=== PATIENT | female | born 1940 | race Caucasian/White ===

== ENCOUNTER 2018-02-11 12:28 | Emergency (ER) | payer MEDICARE, OTHER ==
[~2018-02-11] VITALS: Ht 154.9 cm; Wt 64.4 kg
[~2018-02-11 12:28] MED LIST: ALBU.083IS IH; ALBU90OI6 INH; ASCO500 PO; AZIT500 PO; Ativan0.5 MG PO; CALCA400CH PO; CALCIT950 PO; CARV25 PO; CEPH500 PO; DIGO.125 PO; DIGO.25 PO; DOCU100 PO; ENZYME DIGEST PO; ERGO400 PO; FAMVIR PO; FISH1000 PO; FLUSAL2505 IH; FLUT.05NI; FLUT44OIA IH; FURO20 PO; FURO40 PO; HYDCHL25 PO; IRBE150 PO; IRBHYD150 PO; Jantoven5 MG; LEVFLO500 PO; LEVSOD100 PO; LEVSOD112 PO; LEVSOD125 PO; LEVSOD88 PO; MELA3 PO; MELATIN3 MG PO; METPRE4DP PO; MONT10T PO; MULVITMINF PO; NEBI5; NEBI5 PO; OXYC10ER PO; POTA20PAC PO; POTCHL10ER PO; Percocet 5-3251 EACH PO; SULTRIDS PO; TOCO400 PO; TRAZ100 PO; TRAZ50 PO; VALS80 PO; VITAMIN D35000 UNI1 PO; VITB100 PO; Ventolin Soln3 ML INH; WARF5 PO; WARF7.5 PO; ZOLP5 PO; [UNRECOGNIZED DRUG - REMARK]
[2018-02-11] MEDS ORDERED: PRED5 PO (12:39)
[2018-02-11 13:12] LABS: BASOPHILS ABSOLUTE AUTO 0.03 K/mm3 (0.00-0.23); BASOPHILS PERCENT AUTO 0 % (0-2); EOSINOPHILS PERCENT AUTO 0 % (0-6); Hematocrit 38.7 % (33.0-51.0); Hemoglobin 12.5 g/dL (11.5-16.0); IMMATURE GRAN ABSOLUTE AUTO 0.05 K/mm3 (0.00-0.10); IMMATURE GRAN PERCENT AUTO 1 % (0-1); LYMPHOCYTES ABSOLUTE AUTO 0.46 K/mm3 (0.84-5.20); LYMPHOCYTES PERCENT AUTO 4 % (21-46); MONOCYTES ABSOLUTE AUTO 0.52 K/mm3 (0.16-1.47); MONOCYTES PERCENT AUTO 5 % (4-13); Mean Corpuscular HGB 29.3 pg (26.0-34.0); Mean Corpuscular HGB Conc 32.3 g/dL (31.5-36.5); Mean Corpuscular Volume 91 fL (80-100); Mean Platelet Volume 11.3 fL (9.1-12.4); NEUTROPHILS ABSOLUTE AUTO 9.57 K/mm3 (1.96-9.15); NEUTROPHILS PERCENT AUTO 90 % (41-73); NRBC ABSOLUTE 0.02 K/mm3 (0.00-0.02); NRBC Auto 0.2 /100 WBC (0.0-0.2); Platelet Count 187 K/mm3 (150-400); RDW Coefficient Variation 17.2 % (11.7-14.2); RDW Standard Deviation 57.4 fL (35.1-46.3); Red Blood Cell Count 4.27 M/mm3 (3.80-5.20); White Blood Cell Count 10.63 K/mm3 (4.00-11.30)
[2018-02-11 13:23] LABS: International Normalized Ratio 3.1; Prothrombin Time Results 33.4 Sec (9.7-11.5)
[2018-02-11 13:26] LABS: Alanine Aminotransfer (ALT/SGP 133 U/L (12-78); Albumin, Blood 4.2 g/dL (3.4-5.0); Albumin/Globulin Ratio 1.1 (0.8-1.8); Alk Phos 82 U/L (50-136); Anion Gap 7 mmol/L (6-16); Aspartate Aminotrans (AST/SGOT 109 U/L (12-37); Bilirubin, Total 1.2 mg/dL (0.1-1.0); Blood Urea Nitrogen 28 mg/dL (8-24); Bun/Creatinine Ratio 32.3 (12.0-20.0); CO2, Blood 30 mmol/L (21-32); Calcium, Blood 9.1 mg/dL (8.5-10.1); Chloride, Blood 98 mmol/L (98-108); Creatinine, Blood 0.87 mg/dL (0.40-1.00); Globulin, Blood 3.8 g/dL (2.2-4.0); Glomerular Filtration Rate >60 (60-); Glucose, Blood 132 mg/dL (70-99); Potassium, Blood 4.1 mmol/L (3.5-5.5); Sodium, Blood 135 mmol/L (136-145); Troponin I 0.017 ng/mL (0.000-0.040)
[2018-02-11] MEDS ORDERED: PRED20 PO (15:58)
[2018-07-10] MEDS ORDERED: Multivitamin1 EAC1 PO (12:23)
[2018-07-10] MEDS ORDERED: LEVSOD88 PO (12:23)
== END 2018-02-11 16:26 | disposition home or self-care (01) ==
LOC: ER 12:28
PROVIDERS: Physician Assistant
DX: I50.9 Heart failure, unspecified (principal); J45.909 Unspecified asthma, uncomplicated; Z88.1 Allergy status to other antibiotic agents; Z88.5 Allergy status to narcotic agent; Z88.8 Allergy status to other drugs, medicaments and biological substances; Z79.899 Other long term (current) drug therapy; Z79.01 Long term (current) use of anticoagulants; Z79.52 Long term (current) use of systemic steroids; I48.91 Unspecified atrial fibrillation
CPT/HCPCS: 36415; 71046; 80053; 83880; 84484; 85025; 85610; 93005; 93010; 94640; 96374; 96375; 99283; J1940; J2920

== ENCOUNTER 2018-07-16 12:38 | Day surgery (SDC) | payer MEDICARE, OTHER ==
[~2018-07-16] VITALS: Ht 154.9 cm; Wt 66.7 kg
[~2018-07-16 12:38] MED LIST changes: +Multivitamin1 EAC1 PO; +PRED20 PO; +PRED5 PO
== END 2018-07-16 15:12 | disposition home or self-care (01) ==
LOC: ORSCSDS 12:38
PROVIDERS: Internal Medicine Gastroenterology
PROC: 0DBN8ZX Excision of Sigmoid Colon, Via Natural or Artificial Opening Endoscopic, Diagnostic (ICD-10-PCS; principal; 2018-07-16 14:00)
PROC: 0DBH8ZX Excision of Cecum, Via Natural or Artificial Opening Endoscopic, Diagnostic (ICD-10-PCS; principal; 2018-07-16 14:00)
PROC: 0DBP8ZX Excision of Rectum, Via Natural or Artificial Opening Endoscopic, Diagnostic (ICD-10-PCS; principal; 2018-07-16 14:00)
DX: Z12.11 Encounter for screening for malignant neoplasm of colon (principal); Z86.010 Personal history of colon polyps; D12.0 Benign neoplasm of cecum; K63.5 Polyp of colon; K62.1 Rectal polyp; K63.89 Other specified diseases of intestine; K57.30 Diverticulosis of large intestine without perforation or abscess without bleeding; K64.8 Other hemorrhoids; K64.4 Residual hemorrhoidal skin tags; I10 Essential (primary) hypertension; I48.0 Paroxysmal atrial fibrillation; Z95.0 Presence of cardiac pacemaker; Z79.899 Other long term (current) drug therapy; Z79.01 Long term (current) use of anticoagulants
CPT/HCPCS: J2370; J2405; J7120

== ENCOUNTER 2020-09-22 10:04 | Emergency (ER) | payer MEDICARE, OTHER ==
[~2020-09-22] VITALS: Ht 154.9 cm; Wt 95.2 kg
[2020-09-22] MEDS ORDERED: DICLOFENAC SOD100 GM TOP (13:02)
== END 2020-09-22 13:00 | disposition home or self-care (01) ==
LOC: ER 10:04
DX: M79.672 Pain in left foot (principal); Z79.899 Other long term (current) drug therapy
CPT/HCPCS: 73630; 99283-25

== ENCOUNTER 2020-11-11 14:08 | Emergency (ER) | payer MEDICARE, OTHER ==
[~2020-11-11] VITALS: Ht 157.5 cm; Wt 54.4 kg
[~2020-11-11 14:08] MED LIST changes: +DICLOFENAC SOD100 GM TOP
[2020-11-11 14:46] LABS: Source, Urine Catheter
[2020-11-11 14:49] LABS: Appearance, Urine Clear (Clear); Bilirubin, Urine Neg (Neg); Blood, Urine 1+ (Neg); Color, Urine Yellow (P-Yellow); Glucose Qualitative, Urine Neg (Neg); Ketones, Urine Neg (Neg); Leukocyte Esterase, Urine 1+ (Neg); Nitrite, Urine Neg (Neg); Protein, Urine Neg (Neg); Specific Gravity, Urine 1.015 (1.003-1.022); Urobilinogen, Urine NORM (Normal)
[2020-11-11 14:58] LABS: Bacteria Rare /hpf; Red Blood Cells, Urine 0-2 /hpf (0-2); Squamous Epithelial Cells Not Seen /hpf (Few); White Blood Cells, Urine 0-2 /hpf (0-5)
[2020-11-11] MEDS ORDERED: TORSE20 PO (15:20)
[2020-11-11] MEDS ORDERED: POTA10T PO (15:20)
[2020-11-11] MEDS ORDERED: SPIR25 PO (15:20)
[2020-11-11] MEDS ORDERED: XYZAL5 MG PO (15:21)
[2020-11-11] MEDS ORDERED: SYMBICORT 80-10.2 GM INH (15:22)
[2020-11-11 15:37] LABS: BASOPHILS ABSOLUTE AUTO 0.04 K/mm3 (0.00-0.23); BASOPHILS PERCENT AUTO 1 % (0-2); EOSINOPHILS ABSOLUTE AUTO 0.01 K/mm3 (0.00-0.68); EOSINOPHILS PERCENT AUTO 0 % (0-6); Hematocrit 38.3 % (33.0-51.0); IMMATURE GRAN ABSOLUTE AUTO 0.05 K/mm3 (0.00-0.10); IMMATURE GRAN PERCENT AUTO 1 % (0-1); LYMPHOCYTES ABSOLUTE AUTO 1.13 K/mm3 (0.84-5.20); LYMPHOCYTES PERCENT AUTO 13 % (21-46); MONOCYTES ABSOLUTE AUTO 0.47 K/mm3 (0.16-1.47); MONOCYTES PERCENT AUTO 5 % (4-13); Mean Corpuscular HGB 28.9 pg (26.0-34.0); Mean Corpuscular HGB Conc 31.3 g/dL (31.5-36.5); Mean Corpuscular Volume 92 fL (80-100); NEUTROPHILS ABSOLUTE AUTO 7.08 K/mm3 (1.96-9.15); NEUTROPHILS PERCENT AUTO 81 % (41-73); NRBC ABSOLUTE 0.02 K/mm3 (0.00-0.02); NRBC Auto 0.2 /100 WBC (0.0-0.2); RDW Coefficient Variation 16.2 % (11.7-14.2); RDW Standard Deviation 54.9 fL (35.1-46.3); Red Blood Cell Count 4.15 M/mm3 (3.80-5.20); White Blood Cell Count 8.78 K/mm3 (4.00-11.30)
[2020-11-11 16:04] LABS: Alanine Aminotransfer (ALT/SGP 52 U/L (12-78); Albumin, Blood 3.8 g/dL (3.4-5.0); Albumin/Globulin Ratio 0.9 (0.8-1.8); Alk Phos 115 U/L (50-136); Anion Gap 7 mmol/L (6-16); Aspartate Aminotrans (AST/SGOT 51 U/L (12-37); Bilirubin, Total 1.1 mg/dL (0.1-1.0); Blood Urea Nitrogen 29 mg/dL (8-24); Bun/Creatinine Ratio 34.2 (12.0-20.0); CO2, Blood 25 mmol/L (21-32); Calcium, Blood 9.8 mg/dL (8.5-10.1); Chloride, Blood 105 mmol/L (98-108); Creatinine, Blood 0.85 mg/dL (0.40-1.00); Globulin, Blood 4.4 g/dL (2.2-4.0); Glomerular Filtration Rate >60 (60-); Glucose, Blood 104 mg/dL (70-99); Potassium, Blood 4.6 mmol/L (3.5-5.5); Sodium, Blood 137 mmol/L (136-145); Total Protein, Blood 8.2 g/dL (6.4-8.2)
[2020-11-11 16:05] LABS: Mean Platelet Volume 12.6 fL (9.1-12.4); Platelet Count 145 K/mm3 (150-400)
[2020-11-11] MEDS ORDERED: LACTULOSE20 GM/30 M PO (17:32)
[2020-11-11] MEDS ORDERED: Colace100 MG PO (17:32)
== END 2020-11-11 18:00 | disposition home or self-care (01) ==
LOC: ER 14:08
PROVIDERS: Physician Assistant; Student in an Organized Health Care Education/Training Program
DX: K59.00 Constipation, unspecified (principal); I50.9 Heart failure, unspecified; I48.91 Unspecified atrial fibrillation; J45.909 Unspecified asthma, uncomplicated; Z79.01 Long term (current) use of anticoagulants; Z79.899 Other long term (current) drug therapy; Z88.1 Allergy status to other antibiotic agents; Z88.8 Allergy status to other drugs, medicaments and biological substances; Z88.5 Allergy status to narcotic agent; Z95.0 Presence of cardiac pacemaker
CPT/HCPCS: 51701; 74176; 80053; 81001; 83690; 85025; 87086; 96374; 99284-25; J2405

== ENCOUNTER 2021-08-13 11:43 | Emergency (ER) | payer MEDICARE, OTHER ==
[~2021-08-13] VITALS: Ht 154.9 cm; Wt 66.7 kg
[~2021-08-13 11:43] MED LIST changes: +Colace100 MG PO; +LACTULOSE20 GM/30 M PO; +POTA10T PO; +SPIR25 PO; +SYMBICORT 80-10.2 GM INH; +TORSE20 PO; +XYZAL5 MG PO
[2021-08-13] MEDS ORDERED: HYDR1TAB94 PO (17:00)
[2021-08-13] MEDS ORDERED: COLCHICINE0.6 MG PO (17:00)
== END 2021-08-13 18:10 | disposition home or self-care (01) ==
LOC: ER 11:43
DX: M25.561 Pain in right knee (principal); M10.9 Gout, unspecified; I50.9 Heart failure, unspecified; I48.91 Unspecified atrial fibrillation; J45.909 Unspecified asthma, uncomplicated; Z88.1 Allergy status to other antibiotic agents; Z88.5 Allergy status to narcotic agent; Z88.8 Allergy status to other drugs, medicaments and biological substances; Z79.899 Other long term (current) drug therapy; Z79.01 Long term (current) use of anticoagulants
CPT/HCPCS: 73562-RT; 73630; 84550; 99283-25; A9270

== ENCOUNTER 2021-10-28 10:43 | Emergency (ER) | payer MEDICARE, OTHER ==
[~2021-10-28] VITALS: Ht 154.9 cm; Wt 63.5 kg
[~2021-10-28 10:43] MED LIST changes: +COLCHICINE0.6 MG PO; +HYDR1TAB94 PO
[2021-10-28] MEDS ORDERED: BENADRYL25 M1 PO (11:35)
[2021-10-28] MEDS ORDERED: PRED20 PO (11:35)
== END 2021-10-28 12:18 | disposition home or self-care (01) ==
LOC: ER 10:43
DX: L50.0 Allergic urticaria (principal); I48.91 Unspecified atrial fibrillation; I50.9 Heart failure, unspecified; J45.909 Unspecified asthma, uncomplicated; Z79.899 Other long term (current) drug therapy; Z88.8 Allergy status to other drugs, medicaments and biological substances
CPT/HCPCS: 99283; A9270; J7512

== ENCOUNTER 2021-11-07 10:42 | Inpatient (IN) | payer MEDICARE, OTHER ==
[~2021-11-07] VITALS: Ht 157.5 cm; Wt 63.5 kg
[~2021-11-07 10:42] MED LIST changes: -Ativan0.5 MG PO; +BENADRYL25 M1 PO; -Jantoven5 MG; -MONT10T PO; -NEBI5; -POTA10T PO; -SPIR25 PO; -SYMBICORT 80-10.2 GM INH; -TORSE20 PO; -VALS80 PO; -XYZAL5 MG PO
[2021-11-07 11:42] LABS: BASOPHILS ABSOLUTE AUTO 0.03 K/mm3 (0.00-0.23); BASOPHILS PERCENT AUTO 0 % (0-2); EOSINOPHILS ABSOLUTE AUTO 0.01 K/mm3 (0.00-0.68); EOSINOPHILS PERCENT AUTO 0 % (0-6); Hematocrit 33.5 % (33.0-51.0); Hemoglobin 10.9 g/dL (11.5-16.0); IMMATURE GRAN ABSOLUTE AUTO 0.36 K/mm3 (0.00-0.10); IMMATURE GRAN PERCENT AUTO 3 % (0-1); LYMPHOCYTES ABSOLUTE AUTO 1.38 K/mm3 (0.84-5.20); LYMPHOCYTES PERCENT AUTO 11 % (21-46); MONOCYTES ABSOLUTE AUTO 0.73 K/mm3 (0.16-1.47); MONOCYTES PERCENT AUTO 6 % (4-13); Mean Corpuscular HGB 29.3 pg (26.0-34.0); Mean Corpuscular HGB Conc 32.5 g/dL (31.5-36.5); Mean Corpuscular Volume 90 fL (80-100); Mean Platelet Volume 11.5 fL (9.1-12.4); NEUTROPHILS ABSOLUTE AUTO 9.56 K/mm3 (1.96-9.15); NEUTROPHILS PERCENT AUTO 79 % (41-73); Platelet Count 194 K/mm3 (150-400); RDW Coefficient Variation 18.7 % (11.7-14.2); RDW Standard Deviation 60.9 fL (35.1-46.3); Red Blood Cell Count 3.72 M/mm3 (3.80-5.20); White Blood Cell Count 12.07 K/mm3 (4.00-11.30)
[2021-11-07 11:56] LABS: Albumin, Blood 3.2 g/dL (3.4-5.0); Albumin/Globulin Ratio 0.8 (0.8-1.8); Bun/Creatinine Ratio 35.5 (12.0-20.0); Calcium, Blood 8.7 mg/dL (8.5-10.1); Creatinine, Blood 2.79 mg/dL (0.40-1.00); Potassium, Blood 5.6 mmol/L (3.5-5.5); Total Protein, Blood 7.2 g/dL (6.4-8.2)
[2021-11-07 12:12] LABS: International Normalized Ratio 3.11; Prothrombin Time Results 30.3 Sec (9.7-11.5)
[2021-11-07 13:00] LABS: Source, Urine Clean Catch
[2021-11-07 13:09] LABS: Appearance, Urine Hazy (Clear); Bilirubin, Urine Neg (Neg); Blood, Urine Neg (Neg); Color, Urine Yellow (P-Yellow); Glucose Qualitative, Urine Neg (Neg); Ketones, Urine Neg (Neg); Leukocyte Esterase, Urine 1+ (Neg); Nitrite, Urine Neg (Neg); Protein, Urine Neg (Neg); Specific Gravity, Urine 1.015 (1.003-1.022); Urobilinogen, Urine NORM (Normal)
[2021-11-07 13:30] LABS: Amorphous Light (0-Heavy); Bacteria Few /hpf; Red Blood Cells, Urine 0-2 /hpf (0-2); Renal Epithelial Rare /hpf (0-Rare); Squamous Epithelial Cells Rare /hpf (Few); Transitional Epithelial Cells Rare /hpf (0-Rare)
[2021-11-07] MEDS ORDERED: MONT10T PO (20:05)
[2021-11-07] MEDS ORDERED: LEVSOD100 PO (20:05)
[2021-11-07] MEDS ORDERED: NEBI5 PO (20:06)
[2021-11-07] MEDS ORDERED: POTCHL20ER PO (20:07)
[2021-11-07] MEDS ORDERED: WARF3 PO (20:09)
[2021-11-07] MEDS ORDERED: ALLO100 PO (20:11)
[2021-11-07] MEDS ORDERED: SYMBICORT 160-4.6 GM INH (20:12)
[2021-11-07] MEDS ORDERED: XYZAL5 MG PO (20:12)
[2021-11-07] MEDS ORDERED: MULVITA PO (20:13)
[2021-11-07] MEDS ORDERED: Ativan0.5 MG PO (20:13)
[2021-11-07] MEDS ORDERED: SPIR25 PO (20:14)
[2021-11-07] MEDS ORDERED: TORS10 PO (20:14)
[2021-11-07] MEDS ORDERED: VALSARTAN40 MG PO (20:15)
--- NOTE | 2021-11-08 04:50 | NUR ---
SHIFT SUMMARY PT IS AA0X4,VERY PLEASANT AND COOPERATIVE. PT ON ROOM AIR, NO COMPLAINTS OF PAIN NOR SOB. NO ACUTE EVENTS OVERNIGHT. VSS REVIEWED . MEDS GIVEN PER EMAR. BED IN LOWER POSITION AND CALL LIGHT WITHIN REACH. WILL CONTINUE TO MONITOR UNTIL DAY SHIFT ARRIVES.
[2021-11-08 05:22] LABS: Prothrombin Time Results 43.5 Sec (9.7-11.5)
[2021-11-08 05:40] LABS: International Normalized Ratio 4.58
--- NOTE | 2021-11-08 06:06 | NUR ---
CRITICAL RESULTS FROM [facility] DISSOLVER OPERATOR SRIRAM REGARDING INR 4.58. PHARMACY ALONG WITH CHARGE NURSE GARIMA WERE NOTIFIED.
[2021-11-08 06:40] LABS: Free Thyroxine 1.36 ng/dL (0.70-1.60); Thyroid Stimulating Hormone 0.108 uIU/mL (0.360-4.800)
[2021-11-08 08:32] LABS: Albumin, Blood 3.1 g/dL (3.4-5.0); Bilirubin, Total 0.7 mg/dL (0.1-1.0); Bun/Creatinine Ratio 40.9 (12.0-20.0); Calcium, Blood 8.3 mg/dL (8.5-10.1); Creatinine, Blood 2.08 mg/dL (0.40-1.00); Globulin, Blood 3.2 g/dL (2.2-4.0); Phosphorus, Blood 4.8 mg/dL (2.5-4.9); Potassium, Blood 4.9 mmol/L (3.5-5.5); Total Protein, Blood 6.3 g/dL (6.4-8.2)
[2021-11-08] MEDS ORDERED: ACET325 PO (09:21)
[2021-11-08] MEDS ORDERED: NEBI5 PO (09:22)
[2021-11-08] MEDS ORDERED: POTA10T PO (09:25)
[2021-11-08] MEDS ORDERED: TRAZ50 PO (09:26)
[2021-11-08 10:12] LABS: Eosinophils-Raw #,Urine 0
--- NOTE | 2021-11-08 18:05 | NUR ---
SHIFT SUMMARY PT ADMITTED FOR RASH. RASH PRESENT ALL OVER BODY AND BLISTERS ON LIPS. BIOPSY TAKEN BY FUNERAL PROFESSIONAL. TONGUE SWELLING HAS RESOLVED BUT PT IS STILL HAVING GUM PAIN. MEDICATIONS FAXED FROM [facility] AND RECONCILED. PT EXPERIENCES DYSPNEA ON EXERTION AND IS LIME. VSS. WILL REPORT TO ISAAC MORROW.
[2021-11-09 04:36] LABS: BASOPHILS ABSOLUTE AUTO 0.01 K/mm3 (0.00-0.23); BASOPHILS PERCENT AUTO 0 % (0-2); EOSINOPHILS PERCENT AUTO 0 % (0-6); Hematocrit 26.7 % (33.0-51.0); Hemoglobin 8.5 g/dL (11.5-16.0); IMMATURE GRAN ABSOLUTE AUTO 0.14 K/mm3 (0.00-0.10); IMMATURE GRAN PERCENT AUTO 2 % (0-1); LYMPHOCYTES ABSOLUTE AUTO 1.04 K/mm3 (0.84-5.20); LYMPHOCYTES PERCENT AUTO 11 % (21-46); MONOCYTES ABSOLUTE AUTO 0.39 K/mm3 (0.16-1.47); MONOCYTES PERCENT AUTO 4 % (4-13); Mean Corpuscular HGB 29.2 pg (26.0-34.0); Mean Corpuscular HGB Conc 31.8 g/dL (31.5-36.5); Mean Corpuscular Volume 92 fL (80-100); Mean Platelet Volume 11.5 fL (9.1-12.4); NEUTROPHILS ABSOLUTE AUTO 7.67 K/mm3 (1.96-9.15); NEUTROPHILS PERCENT AUTO 83 % (41-73); NRBC ABSOLUTE 0.02 K/mm3 (0.00-0.02); NRBC Auto 0.2 /100 WBC (0.0-0.2); Platelet Count 154 K/mm3 (150-400); RDW Coefficient Variation 18.8 % (11.7-14.2); RDW Standard Deviation 62.4 fL (35.1-46.3); Red Blood Cell Count 2.91 M/mm3 (3.80-5.20); White Blood Cell Count 9.25 K/mm3 (4.00-11.30)
--- NOTE | 2021-11-09 04:55 | NUR ---
SHIFT SUMMARY PT IS AWAKE AND ALERTX4. DURING SHIFT ,PT STARTED COUGHING,WHEEZING NOTED MD WAS NOTIFIED. BREATHING TX WAS ORDERED AND GIVEN, FLUID WAS ALSO DC. PT STATED THAT SHE FELT BETTER AFTER TNE NEBULIZER TX AND SLEPT AFTERWARDS. PT IS RESTING COMFORTABLY AT THIS TIME. BED IN LOWER POSITION AND CALL LIGHT IN REACH. WILL CONTINUE TO MONITOR
[2021-11-09 05:03] LABS: Prothrombin Time Results 59.9 Sec (9.7-11.5)
[2021-11-09 05:08] LABS: International Normalized Ratio 6.44
[2021-11-09 05:36] LABS: Albumin, Blood 2.9 g/dL (3.4-5.0); Albumin/Globulin Ratio 0.9 (0.8-1.8); Bilirubin, Total 0.6 mg/dL (0.1-1.0); Bun/Creatinine Ratio 42.9 (12.0-20.0); C-REACTIVE PROTEIN, EXT RANGE 2.01 mg/dL (0.000-0.300); Calcium, Blood 8.2 mg/dL (8.5-10.1); Creatinine, Blood 1.7 mg/dL (0.40-1.00); Globulin, Blood 3.1 g/dL (2.2-4.0); Potassium, Blood 4.5 mmol/L (3.5-5.5)
--- NOTE | 2021-11-09 06:14 | NUR ---
RECEIVED CRITICAL VALUE REGARDING INR 6.44. PHARMACY ALONG WITH CHARGE NURSE ZOIE WERE NOTIFIED .
[2021-11-09 13:11] LABS: A/G RATIO 1.1 (0.7-1.7); ALBUMIN 3.2 g/dL (2.9-4.4); ALPHA-1-GLOBULIN 0.3 g/dL (0.0-0.4); ALPHA-2-GLOBULIN 0.6 g/dL (0.4-1.0); BETA GLOBULIN 0.9 g/dL (0.7-1.3); GAMMA GLOBULIN 1.1 g/dL (0.4-1.8); GLOBULIN, TOTAL 2.8 g/dL (2.2-3.9); M-SPIKE Not Observed g/dL (Not Observed)
--- NOTE | 2021-11-09 17:01 | NUR ---
NO ACUTE CHANGES PT AOX4 AND COOPERATIVE OF CARE. PT STATES SHE FEELS SHE IS DOING BETTER TODAY. PT LOOKS TO HAVE HER LIPS IMPROVING AND HER RASH. PT REPORTS HER MOUTH IS STILL SORE. PT HAS CALL LIGHT WITHIN REACH WILL CONTINUE TO MONITOR.
--- NOTE | 2021-11-10 04:02 | NUR ---
SHIFT SUMMARY PT IS AA0X4. PT SLEPT THROUH THE NIGHT. NO NOTABLE EVENTS OVERNIGHT.PT STILL FEELS SOME SOB ON EXERTION. BREATING TX WAS GIVEN TO HELP WITH THE SOB. VSS REVIEWED. ALL MEDS GIVEN PER EMAR. BED IN LOWER POSITION. CALL LIGHT IN EASY REACH. WILL CONTINUE TO MONITOR.
[2021-11-10 05:15] LABS: Prothrombin Time Results 47.3 Sec (9.7-11.5)
[2021-11-10 05:24] LABS: International Normalized Ratio 5.01
[2021-11-10 16:07] LABS: ANTI-CENTROMERE B ANTIBODIES <0.2 AI (0.0-0.9); ANTI-DNA (DS) AB QN <1 IU/mL (0-9); ANTI-JO-1 <0.2 AI (0.0-0.9); ANTICHROMATIN ANTIBODIES <0.2 AI (0.0-0.9); ANTISCLERODERMA-70 ANTIBODIES <0.2 AI (0.0-0.9); RNP ANTIBODIES 1.2 AI (0.0-0.9); SJOGREN'S ANTI-SS-A <0.2 AI (0.0-0.9); SJOGREN'S ANTI-SS-B <0.2 AI (0.0-0.9); SMITH ANTIBODIES <0.2 AI (0.0-0.9)
--- NOTE | 2021-11-10 18:30 | NUR ---
SHIFT SUMMARY; PATIENT HAD EPISODES OF ANXIETY AND TREMORS DURING DAY. SHE COMPLAINS OF SEVERE SORE MOUTH. ORDERS ATIVAN AND CHANGES BENADRYL TO PRN FOR ITCHING. HE ORDERS MAGIC MOUTHWASH FOR SORENESS AND PO METHYLPREDNISONE. DURING DAY FRANTENT IS ENCOURAGED TO GET OUT OF BED TO CHAIR FOR MEALS. SHE HAS DIFFICULTY EATING BECAUSE OF SORENESS. THIS RN MAKES PATIENT A STRAWBERRY MILKSHAKE AND PATIENT DRINKS THE WHOLE 480 MLS. PATIENT USES CALL LIGHT DIRECTED AND IS COOPERATIVE WITH CARE. WILL REMAIN AVAILABLE FOR THIS PATIENT FOR ANY WANTS OR NEEDS UNTIL HAND OFF AT SHIFT CHANGE. WM LAI RN
[2021-11-10] MEDS ORDERED: ACET325 PO (22:49)
[2021-11-11 04:58] LABS: Hematocrit 31.4 % (33.0-51.0); Hemoglobin 9.9 g/dL (11.5-16.0); Mean Corpuscular HGB Conc 31.5 g/dL (31.5-36.5); Mean Corpuscular Volume 92 fL (80-100); Mean Platelet Volume 12.2 fL (9.1-12.4); NRBC ABSOLUTE 0.06 K/mm3 (0.00-0.02); NRBC Auto 0.3 /100 WBC (0.0-0.2); Platelet Count 175 K/mm3 (150-400); RDW Coefficient Variation 19.2 % (11.7-14.2); RDW Standard Deviation 63.5 fL (35.1-46.3); Red Blood Cell Count 3.41 M/mm3 (3.80-5.20); White Blood Cell Count 23.38 K/mm3 (4.00-11.30)
--- NOTE | 2021-11-11 04:58 | NUR ---
SHIFT SUMMARY PT IS AA0X4 . PT WAS COMPLAINING OF SOB AND SORE THROAT,PLACED ON 2L NC AND CONTINUOUS PULSE OX WAS PLACED BY RT.WHHEZING AND CRACKLES BY RT. WAS NOTIFIED AND HE CAME TO ASSESS PT AT BEDSIDE.MORPHINE AND CEPACOL WERE ORDERED AND GIVEN.PT STATED SHE FELT BETTER AND SLEPT FOR THE REST OF THE SHIFT.PT IS STILL SLEEPING AT THIS TIME, NO SIGH OF DISTRESS OBSERVED. WILL CONTINUE TO MONITOR UNTIL DAY SHIFT ARRIVES.
[2021-11-11 05:19] LABS: Prothrombin Time Results 43.9 Sec (9.7-11.5)
[2021-11-11 05:26] LABS: BAND PERCENT MAN 17 % (0-8); BASOPHILS PERCENT MAN 0 % (0-2); EOSINOPHILS PERCENT MAN 0 % (0-6); LYMPHOCYTES PERCENT MAN 6 % (21-46); MONOCYTES ABSOLUTE MAN 0.23 K/mm3 (0.16-1.47); MONOCYTES PERCENT MAN 1 % (4-13); MYELOCYTE ABSOLUTE MAN 0.23 K/mm3 (0.00-0.00); MYELOCYTE PERCENT MAN 1 % (0-0); SEG NEUTROPHILS PERCENT MAN 75 % (41-73); TOTAL CELLS COUNTED 100
[2021-11-11 05:34] LABS: Albumin, Blood 3.3 g/dL (3.4-5.0); Anion Gap 10 mmol/L (6-16); Blood Urea Nitrogen 75 mg/dL (8-24); Bun/Creatinine Ratio 51.7 (12.0-20.0); CO2, Blood 22 mmol/L (21-32); Calcium, Blood 8.4 mg/dL (8.5-10.1); Chloride, Blood 109 mmol/L (98-108); Creatinine, Blood 1.45 mg/dL (0.40-1.00); Glomerular Filtration Rate 34 (60-); Glucose, Blood 209 mg/dL (70-99); Magnesium, Blood 2.2 mg/dL (1.6-2.4); Phosphorus, Blood 3.2 mg/dL (2.5-4.9); Potassium, Blood 4.6 mmol/L (3.5-5.5); Sodium, Blood 141 mmol/L (136-145)
[2021-11-11 06:11] LABS: International Normalized Ratio 4.62
--- NOTE | 2021-11-11 09:40 | NUR ---
pt sitting up in the chair, not eating, is working to breath, a/ox3, cooperative with care, follows commands well, denies pain, just sob, lungs are very wet, course, with productive cough that she swallows, is currently on 2 lters o2 via n/c, resp even and labored at rest, becomes worse with activity, is very anxious, hrr, no edema noted, ppp+1, cap refill <3sec, vs stable, afebrile, iv site s.l. site is clear and patent, btx4, abd flat soft nontender, voids without diff, skin c/w/d, mabirgit, kandy, call light in reach.
--- NOTE | 2021-11-11 11:14 | NUR ---
pt had some emisis, her lungs sound more wet, and course, called Dr. Neumann and asked him to see her, he is here and ordered a stat cxr, waiting on that. pt recieved a breathing tx. call light in reach.
--- NOTE | 2021-11-11 11:45 | NUR ---
ordered 40mg lasix now, this was given, ekg done, v.s. done, he wants her to transfer to pcu as her resp status is declining. call light in reach.
[2021-11-11 12:27] LABS: Hematocrit 36.1 % (33.0-51.0); Hemoglobin 11.6 g/dL (11.5-16.0); Mean Corpuscular HGB 29.7 pg (26.0-34.0); Mean Corpuscular HGB Conc 32.1 g/dL (31.5-36.5); Mean Corpuscular Volume 92 fL (80-100); Mean Platelet Volume 12.3 fL (9.1-12.4); NRBC ABSOLUTE 0.46 K/mm3 (0.00-0.02); NRBC Auto 2.2 /100 WBC (0.0-0.2); Platelet Count 188 K/mm3 (150-400); RDW Coefficient Variation 19.6 % (11.7-14.2); RDW Standard Deviation 64.5 fL (35.1-46.3); Red Blood Cell Count 3.91 M/mm3 (3.80-5.20); White Blood Cell Count 20.78 K/mm3 (4.00-11.30)
--- NOTE | 2021-11-11 12:31 | NUR ---
pt has been transfered to icu via bed, report given to Tyron MORROW, all belongings went with pt. called her daughter to update her.
--- NOTE | 2021-11-11 12:45 | NUR ---
Patient rushed down from medical floor resp distress and fluid overload. She was given 40 mg Lasix just prior to arriving. She was NC 5L O2 and sats 60's. We placed her in ICU 9 bed and changed linens. Placed 16Fr Elizondo temp and placed on BIPAP 18/6 50% and she started to relax. Dr Neumann at bedside doing orders. She has modeling bilateral LE's. She was working very hard to breath on arrival and shortly after BIPAP sats mid 90%'s. She has IV's bilateral distal UE's flushed and SL.
[2021-11-11 12:49] LABS: BAND PERCENT MAN 17 % (0-8); BASOPHILS PERCENT MAN 0 % (0-2); EOSINOPHILS PERCENT MAN 0 % (0-6); LYMPHOCYTES PERCENT MAN 1 % (21-46); METAMYELOCYTE ABSOLUTE MAN 0.41 K/mm3 (0.00-0.00); METAMYELOCYTE PERCENT MAN 2 % (0-0); MONOCYTES ABSOLUTE MAN 0.41 K/mm3 (0.16-1.47); MONOCYTES PERCENT MAN 2 % (4-13); NEUTROPHILS ABSOLUTE MAN 19.74 K/mm3 (1.96-9.15); SEG NEUTROPHILS PERCENT MAN 78 % (41-73); TOTAL CELLS COUNTED 100
[2021-11-11 12:50] LABS: Albumin, Blood 3.1 g/dL (3.4-5.0); Albumin/Globulin Ratio 0.7 (0.8-1.8); Bilirubin, Total 1.7 mg/dL (0.1-1.0); Bun/Creatinine Ratio 45.1 (12.0-20.0); Calcium, Blood 8.5 mg/dL (8.5-10.1); Creatinine, Blood 1.75 mg/dL (0.40-1.00); Globulin, Blood 4.2 g/dL (2.2-4.0); Potassium, Blood 4.9 mmol/L (3.5-5.5); Total Protein, Blood 7.3 g/dL (6.4-8.2); Troponin I 0.272 ng/mL (0.000-0.040)
--- NOTE | 2021-11-11 15:00 | NUR ---
Patient remains on BIPAP and sats in the 90's. Dr Funes by to consult and ordered echo and lasix. Post earlier lasix on got out 300ml clear yellow.
--- NOTE | 2021-11-11 16:00 | NUR ---
Dr Neumann by and i discussed the 80mg Lasix push that Dr Funes ordered and we decided with systolic 70's would bottom her out too much and family stated no pressors. He Dr Neumann mad her Comfort per family and leave BIPAP in place unless she no longer wants it and leave off. She want to danle at bedsid and sit up , so assited her for about 5 min. until tired and repositioned in bed. No changes to BIPAP. She is intermitently V Paced in rate 70-80's. BP's remains soft systolics 60-90's
--- NOTE | 2021-11-11 18:05 | NUR ---
Patient remaisn on BIPAP 18/ and sats >90% with HR 70's and systolic 70's. Oral care done again as her mouth drys out quickly. She remains Comfort care.
--- NOTE | 2021-11-11 19:21 | NUR ---
CARE ASSUMPTION PT IS RESTING IN BED W NO S/S OF DISTRESS OR PAIN. PT ON BIPAP 14/6 W 100% FIO2, O2 SATS >90%. BP VERY LOW W A MAP AT 45. PT REQUESTING TO DANGLE HER LEGS OFF SIDE OF BED SO THIS RN ASSISTED HER WITH THAT BEFORE REPOSITIONING HER IN BED.
--- NOTE | 2021-11-11 21:48 | NUR ---
BELONGINGS: PINK BATH ROBE, BLUE NIGHT GOWN, TWO ELBOW PADS, BLACK PURSE, HEARING AID BATTERIES, RED OCTAVIO, LICENSE, $27.00, AND CHECK BOOK SENT WITH PT TO [facility].
[2021-11-15 10:10] LABS: M-SPIKE, % Not Observed % (Not Observed); PROTEIN,TOTAL,URINE 4.1 mg/dL (Not Estab.)
== END 2021-11-11 21:00 | DRG 916 ==
LOC: ER 10:42 → MEDS 17:44 → ICUW 11-11 12:49
PROVIDERS: Family Medicine; Physician Assistant; ADMIT Hospitalist
PROC: 0HB7XZX Excision of Abdomen Skin, External Approach, Diagnostic (ICD-10-PCS; 2021-11-08)
PROC: 5A09357 Assistance with Respiratory Ventilation, Less than 24 Consecutive Hours, Continuous Positive Airway Pressure (ICD-10-PCS; principal; 2021-11-10)
DX: T78.3XXA Angioneurotic edema, initial encounter (principal); N17.9 Acute kidney failure, unspecified; I13.0 Hypertensive heart and chronic kidney disease with heart failure and stage 1 through stage 4 chronic kidney disease, or unspecified chronic kidney disease; F41.9 Anxiety disorder, unspecified; Z88.5 Allergy status to narcotic agent; Z88.8 Allergy status to other drugs, medicaments and biological substances; Z66 Do not resuscitate; Z51.5 Encounter for palliative care; Z88.1 Allergy status to other antibiotic agents; Z95.0 Presence of cardiac pacemaker; E03.9 Hypothyroidism, unspecified; E78.5 Hyperlipidemia, unspecified; G47.00 Insomnia, unspecified; M54.50 Low back pain, unspecified; Z90.49 Acquired absence of other specified parts of digestive tract; M19.90 Unspecified osteoarthritis, unspecified site; M81.0 Age-related osteoporosis without current pathological fracture; Z95.2 Presence of prosthetic heart valve; Z79.899 Other long term (current) drug therapy; Z79.01 Long term (current) use of anticoagulants; J45.909 Unspecified asthma, uncomplicated; M10.9 Gout, unspecified; D72.828 Other elevated white blood cell count; T38.0X5A Adverse effect of glucocorticoids and synthetic analogues, initial encounter; N18.30 Chronic kidney disease, stage 3 unspecified; I50.9 Heart failure, unspecified; T50.4X5A Adverse effect of drugs affecting uric acid metabolism, initial encounter
CPT/HCPCS: 36415; 51702; 71045; 76770; 80053; 80069; 81001; 81050; 82436; 82595; 83735; 83880; 84100; 84156; 84165; 84166; 84300; 84439; 84443; 84481; 84484; 84550; 85025; 85379; 85610; 85651; 86038; 86140; 86225; 86235; 87086; 87205; 88305; 93005; 93010; 93306; 94640; 94660; 94760; 94762; 96374; 96375; 99285-25; A9270; J1200; J1940; J2270; J2405; J2920; J2930; J7030; J7120; J7509